=== PATIENT | female | born 1995 | race Two or more races ===

== ENCOUNTER 2022-02-05 23:46 | Emergency (ER) | payer OTHER, SELFPAY ==
--- NOTE | ~2022-02-05 | XR_ITS ---
EXAMINATION: XR WRIST, LEFT CLINICAL INFORMATION: Left wrist pain. COMPARISON: None TECHNIQUE: PA, lateral, and oblique views of the left wrist. FINDINGS: The bones and soft tissues are normal. No fracture. Alignment is anatomic with normal joint spaces. No erosions or abnormal soft tissue calcifications. XR/XR wrist LT min 3V IMPRESSION: Normal left wrist.
[2022-02-05 23:53] VITALS: BP 129/84; PULSE 90; RESP 15; TEMP 36.8; O2SAT 95; BMI 43.0
--- NOTE | 2022-02-06 00:16 | ED.SKABFB ---
HPI - Skin/Abscess/Foreign Bdy General Chief complaint: Skin/Abscess/Foreign Body Stated complaint: painful cyst on L wrist Time Seen by Provider: 02/06/22 00:10 Source: patient Mode of arrival: ambulatory Limitations: no limitations History of Present Illness HPI narrative: 27-year-old female presents to the emergency department with bump to her left wrist times a few weeks worsening. Patient tells me she has had a ganglion cyst in the past, she is wondering with the same thing. Denies any numbness, tingling, pain. She tells me the uncomfortable if she touches it. Denies any trauma to the area. Related Data Allergies Allergy/AdvReac Type Severity Reaction Status Date / Time levofloxacin [Levaquin] Allergy Unknown Unknown Verified 02/05/22 23:53 Penicillins Allergy Unknown Verified 02/05/22 23:53 ANTIBIOTIC Allergy Intermediate ITCHY Uncoded 05/02/20 18:28 Review of Systems Review of Systems: Constitutional : No Fever, No Chills, Cardiovascular : No Chest Pain, No SOB Respiratory : No Dyspnea Gastrointestinal : No abdominal pain Musculoskeletal : No Joint Swelling Skin : No rash, No skin laceration, + Cyst Neuro : No Weakness, No Numbness Psych : No SI/HI Yes all other systems are reviewed and are negative PMFSH Past Medical History Attestation statement: The following information was validated with the patient. Source: old records reviewed and nursing notes reviewed Social History Social History Advance Directives: No Advance Directives Information Provided: Yes Physical Exam Vital Signs: Vital Signs: Last Vital Signs Temp 98.3 F 02/05/22 23:53 Pulse 90 02/05/22 23:53 Resp 15 02/05/22 23:53 BP 129/84 02/05/22 23:53 Pulse Ox 95 02/05/22 23:53 O2 Del Method 02/05/22 23:53 BMI result Body Mass Index 43.0 VSS Appearance: Alert.? Oriented X3.? No acute distress.? Head: Normocephalic, atraumatic, no step-offs or deformities CVS: Normal heart rate and rhythm.? Pulses normal.? Respiratory: No respiratory distress.? Breath sounds normal.? Abdomen: Soft and nontender.? Skin: Skin warm and dry.? Normal skin color.? Normal skin turgor.? Extremities: No lower extremity edema.? No calf ttp. 5/5 strength to bilateral upper and lower extremities + cyst likley ganglion to left ventral wrist 3cm X 3 Cm Back: No midline tenderness, no C-spine tenderness, full range of motion, no CVA tenderness bilaterally Neuro: Oriented X 3.? No motor deficit.? No sensory deficit. CN 2-12 intact Course Reevaluation(s) Reevaluation #1: Patient was reassured that ganglion cyst likely a recurrent in nature, therefore draining it may not be beneficial, will give her information for general surgery follow-up. Advised her to return with new or worsening symptoms. At this time I feel comfortable discharge home Time: 00:23 MDM - Skin/Abscess/Foreign Bdy MDM Narrative Medical decision making narrative: 0022 27-year-old female presents with a ganglion cyst to the left ventral aspect of wrist times a few weeks worsening. Denies numbness, tingling. Denies trauma. Physical examination significant for 3 cm with 3 cm left ganglion cyst to the dorsal aspect of the left wrist. Neurovascularly intact Plan at this time is Education. Medical Records Attestation: I reviewed the patient's medical records. Lab Data Attestation: I reviewed the patient's lab results. Critical Care Time Critical Care Time Critical Care Time: No Discharge Plan Discharge Clinical Impression: Ganglion cyst Patient Disposition: Home, Self-Care Instructions: Ganglion Cysts (ED), Ganglion Cyst Removal (DC) Additional Instructions: Take your medications as prescribed. If you were prescribed antibiotics today, it is important that you take your medication to their entirety, do not skip any doses, do not finish them early. Follow-up with your primary care provider this week. I have given you follow-up for general surgery. As we discussed these are not typically incised and drained because they are usually recurrent in nature. Return to the emergency department with new or worsening symptoms. Such as fevers, chills, chest pain, shortness of breath, nausea, vomiting, dizziness, headache, vision changes, lethargy, numbness, tingling In case of emergency call 911 Referrals: Juan Garibay MD [Physician] - 2 days Stand Alone Forms: Work/School Release
== END 2022-02-06 00:51 | disposition home or self-care (01) ==
PROVIDERS: Emergency Provider Emergency Medicine
DX: M67.432 Ganglion, left wrist (principal); M25.532 Pain in left wrist
CPT/HCPCS: 73110; 99282; 99283

== ENCOUNTER 2022-05-28 18:51 | Emergency (ER) | payer OTHER, SELFPAY ==
[2022-05-28 19:03] VITALS: BP 113/63; PULSE 88; RESP 18; TEMP 36.4; O2SAT 99; BMI 43.4
[2022-05-28 19:34] LABS: Strep A Nucleic Acid Negative (Negative)
--- NOTE | 2022-05-28 19:52 | ED.URI ---
HPI - URI/Sore Throat General Chief Complaint: Upper Respiratory Symptoms Stated Complaint: sore throat, stuffy nose Time Seen by Provider: 05/28/22 19:30 Source: patient Mode of arrival: ambulatory Limitations: no limitations History of Present Illness HPI Narrative: Patient comes to the emergency room complaining of a sore throat and stuffy/running nose. Patient has kids have the same symptoms. Patient denies fever or chills. Patient has history of asthma but she has not had any exacerbations. No shortness of breath or chest pain. Related Data Allergies Allergy/AdvReac Type Severity Reaction Status Date / Time levofloxacin [Levaquin] Allergy Unknown Unknown Verified 02/05/22 23:53 Penicillins Allergy Unknown Verified 02/05/22 23:53 ANTIBIOTIC Allergy Intermediate ITCHY Uncoded 05/02/20 18:28 Review of Systems Review of Systems: Constitutional : No Weight loss, No Fever, No Chills, No Night Sweats, No Fatigue, No Malaise ENT/Mouth : No Hearing loss, No Ear Pain, complaining nasal congestion and runny nose,, No Sinus Pain, No Hoarseness, complaining of sore throat, No Rhinorrhea, No Swallowing Difficulty Eyes: No Eye Pain, No Swelling, No Redness, No Foreign Body, No Discharge, No Vision Changes Cardiovascular : No Chest Pain, No SOB, No Dyspnea on Exertion, No Orthopnea, No Edema, No Palpitations Respiratory : Complaining of cough, no wheezing, no shortness of breath Gastrointestinal : No Nausea, No Vomiting, No Diarrhea, No Constipation, No abdominal Pain, No Hematochezia, No Melena Genitourinary : no irregular bleeding, No Dysuria, No Urinary Frequency, No Hematuria, No Urinary Incontinence, No Urgency, No Flank Pain, No Urinary Flow Changes, No Hesitancy Musculoskeletal : No joint pain, No Myalgias, No Joint Swelling Skin : No Skin Lesions, No rash Neuro : No Weakness, No Numbness, No Paresthesias, No Loss of Consciousness, No Dizziness, No Headache Psych : No Anxiety/Panic, No Depression, No SI/HI/AH/VH, No Social Issues, Heme/Lymph: No Bruising, No Bleeding,No Lymphadenopathy Endocrine : No Polyuria, No Polydipsia, No Temperature Intolerance PMFSH Past Medical History Medical History Asthma exacerbation Social History Social History Advance Directives: No Advance Directives Information Provided: No Physical Exam Vital Signs: Vital Signs: Last Vital Signs Temp 97.5 F 05/28/22 19:03 Pulse 88 05/28/22 19:03 Resp 18 05/28/22 19:03 BP 113/63 05/28/22 19:03 Pulse Ox 99 05/28/22 19:03 O2 Del Method 05/28/22 19:03 BMI result Body Mass Index 43.4 Const: Other: Appearance: Alert. Oriented X3. No acute distress. Eyes: Pupils equal, round and reactive to light. ENT: Pharynx normal. Neck: Normal inspection. Neck supple. No lymph nodes noted. No crepitus CVS: Normal heart rate and rhythm. Pulses normal. Normal S1 and S2 Respiratory: No respiratory distress. Breath sounds normal. No Wheezing. No rales Abdomen: Soft and nontender. No rigidity. No distention. Skin: Skin warm and dry. Normal skin color. Normal skin turgor. Extremities: No lower extremity edema. No Lacerations. No Rash Neuro: Oriented X 3. No motor deficit. No sensory deficit. Moving all extremities. No slurred speech. CN 2 through 12 grossly intact Psych: calm, cooperative, normal affect Course Course Course Narrative: Patient is well-appearing, physical exam is normal. Strep test is negative, tested positive for RSV, respiratory rate within normal limits. MDM - URI/Sore Throat Lab Data Labs: Lab Results 05/28/22 05/28/22 Range/Units 19:14 19:14 Influenza Type A (PCR) NEGATIVE (Negative) Influenza Type B (PCR) NEGATIVE (Negative) RSV RNA Qual (PCR) POSITIVE A (Negative) SARS-CoV-2 RNA (RT-PCR) NEGATIVE (Negative) S. pyogenes GrpA DAISY Negative (Negative) Discharge Plan Discharge Clinical Impression: Acute bronchiolitis due to respiratory syncytial virus (RSV) Patient Disposition: Home, Self-Care Instructions: Bronchiolitis (ED) Additional Instructions: Please follow-up with your primary care physician tomorrow. If you have any worsening or new symptoms, please return to the emergency room or call 911
[2022-05-28 20:05] LABS: Influenza A PCR NEGATIVE (Negative); Influenza B PCR NEGATIVE (Negative); Resp Syncy Virus RNA Qual PCR POSITIVE (Negative); SARS COV2 PCR INHOUSE NEGATIVE (Negative)
== END 2022-05-28 21:08 | disposition home or self-care (01) ==
PROVIDERS: Emergency Provider Emergency Medicine
DX: J21.0 Acute bronchiolitis due to respiratory syncytial virus (principal); Z20.822 Contact with and (suspected) exposure to COVID-19; J02.9 Acute pharyngitis, unspecified
CPT/HCPCS: 0241U; 87651; 99282; 99283

== ENCOUNTER 2022-08-25 19:20 | Emergency (ER) | payer OTHER, SELFPAY ==
--- NOTE | ~2022-08-25 | CT_ITS ---
EXAMINATION: CT ABDOMEN AND PELVIS WITHOUT CONTRAST CLINICAL INFORMATION: Flank pain. Abdominal pain. COMPARISON: CT abdomen pelvis 08/20/2012 TECHNIQUE: Multidetector volumetric imaging was performed from the superior aspect of the liver through the pubic symphysis. Sagittal and coronal reformatted images were obtained on the technologist's workstation. This CT examination was performed using dose optimization techniques as appropriate, variously including the following: *Automated exposure control *Adjustment of mA and/or kV according to patient size (this includes techniques or standardized protocols for targeted exams where dose is matched to indication/reason for exam; i.e. extremities or head) *Use of iterative reconstruction technique DLP: 1007 mGy-cm FINDINGS: LUNG BASES: The visualized lung bases are unremarkable. LIVER, GALLBLADDER, AND BILIARY TREE: The liver is normal in size, shape, and attenuation. No focal hepatic lesion or biliary ductal dilatation is present. The gallbladder is unremarkable with no evidence of radiopaque gallstones, gallbladder wall thickening, or obvious pericholecystic inflammatory changes. PANCREAS: Unremarkable. SPLEEN: Unremarkable. ADRENAL GLANDS: Unremarkable. KIDNEYS AND URETERS: The kidneys are normal in size, shape, and attenuation. No hydronephrosis, hydroureter, or calculi seen. No perinephric stranding. BLADDER: Unremarkable. GASTROINTESTINAL TRACT: The small and large bowel are unremarkable. The appendix is unremarkable. ABDOMINAL WALL: No significant hernia is appreciated. LYMPH NODES: Normal. VASCULAR: Unremarkable. PELVIC VISCERA: Unremarkable. OSSEOUS STRUCTURES: Unremarkable. CT/CT abdomen pelvis wo IV con IMPRESSION: No significant abnormality. Fleischner guidelines were followed.
[2022-08-25 19:32] VITALS: BP 131/72; PULSE 93; RESP 18; TEMP 36.7; O2SAT 98; BMI 44.9
--- NOTE | 2022-08-25 19:33 | ED_ITS ---
HPI - Nausea/Vomiting/Diarrhea General Chief complaint: Nausea/Vomiting/Diarrhea <MADDI Hoffman - Last Filed: 08/25/22 19:34> Stated complaint: gastroenteritis? <MADDI Hoffman - Last Filed: 08/25/22 19:34> Time Seen by Provider: 08/25/22 20:32 <MADDI Hoffman - Last Filed: 08/25/22 19:34> Source: patient <Kiersten Romeo NP - Last Filed: 08/26/22 01:04> Mode of arrival: ambulatory <Kiersten Romeo NP - Last Filed: 08/26/22 01:04> Limitations: no limitations <THERESA Whaley Last Filed: 08/26/22 01:04> History of Present Illness HPI Narrative: 27-year-old female presents with abdominal cramping, nausea, vomiting, diarrhea, starting after eating at a restaurant in [place] on Wednesday. Patient states that multiple people in her family who had the same meal all have similar illnesses. She states to have intermittent chills, is having a difficult time with p.o. intake. <Kiersten Romeo NP - Last Filed: 08/26/22 01:04> MD elicited complaint: nausea, vomiting, diarrhea and abdominal pain <Kiersten Romeo NP - Last Filed: 08/26/22 01:04> Onset (ago): day(s) <Kiersten Romeo NP - Last Filed: 08/26/22 01:04> Description of vomiting: food contents and watery <Kiersten Romeo NP - Last Filed: 08/26/22 01:04> Description of diarrhea: watery <Kiersten Romeo NP - Last Filed: 08/26/22 01:04> Associated nausea: Yes <Kiersten Romeo NP - Last Filed: 08/26/22 01:04> Associated abdominal pain: Yes <Kiersten Romeo NP - Last Filed: 08/26/22 01:04> Location of pain: diffuse <Kiersten Romeo NP - Last Filed: 08/26/22 01:04> Radiation: diffuse <Kiersten Romeo NP - Last Filed: 08/26/22 01:04> Pain consistency: constant <Kiersten Romeo NP - Last Filed: 08/26/22 01:04> Severity: moderate <Kiersten Romeo NP - Last Filed: 08/26/22 01:04> Pain scale (0-10): 6 <Kiersten Romeo NP - Last Filed: 08/26/22 01:04> Quality: cramping, aching and constant <Kiersten Romeo NP - Last Filed: 08/26/22 0 1:04> Exacerbating factors: eating, bowel movement, vomiting and movement <Kiersten Romeo NP - Last Filed: 08/26/22 01:04> Relieving factors: none <Kiersten Romeo NP - Last Filed: 08/26/22 01:04> Context: possible food poisoning <Kiersten Romeo NP - Last Filed: 08/26/22 01:04> Associated symptoms: fever/chills, loss of appetite, malaise and nausea/vomiting <Kiersten Romeo NP - Last Filed: 08/26/22 01:04> Treatment prior to arrival: none <Kiersten Romeo NP - Last Filed: 08/26/22 01:04> Related Data Home medications: Previous Rx's Medication Instructions Recorded dicyclomine 10 mg capsule 10 mg PO QID PRN Abdominal 08/25/22 cramping #10 caps nitrofurantoin 100 mg PO Q12H 7 days #14 caps 08/25/22 monohydrate/macrocrystals 100 mg capsule (Macrobid) <MADDI Hoffman - Last Filed: 08/25/22 19:34> Allergies/Adverse reactions: Allergies Allergy/AdvReac Type Severity Reaction Status Date / Time levofloxacin [Levaquin] Allergy Unknown Unknown Verified 02/05/22 23:53 Penicillins Allergy Unknown Verified 02/05/22 23:53 ANTIBIOTIC Allergy Intermediate ITCHY Uncoded 05/02/20 18:28 <MADDI Hoffman - Last Filed: 08/25/22 19:34> Review of Systems Review of Systems: Constitutional: No Fever, No Chills ENT/Mouth: No Ear Pain, No Hoarseness, No sore throat Eyes: No Eye Pain, No Swelling, No Redness, No Foreign Body Cardiovascular: No Chest Pain, No SOB Respiratory: No Cough, No Dyspnea Gastrointestinal: Positive Nausea, positive Vomiting, positive Diarrhea, positive abdominal Pain Genitourinary: No Dysuria, No Hematuria Musculoskeletal: positive back pain, No Myalgias, No Joint Swelling Skin: No Skin lacerations, No rash Neuro: No Weakness, No Numbness, No Paresthesias, No Dizziness, No Headache <Kiersten Romeo NP - Last Filed: 08/26/22 01:04> Yes all other systems are reviewed and are negative <Kiersten Romeo NP - Last Filed: 08/26/22 01:04> Gastrointestinal: Gastrointestinal: Reports nausea <Kiersten Romeo NP - Last Filed: 08/26/22 01:04> [facility] Past Medical History Attestation statement: The following information was validated with the patient. <Kiersten Romeo NP - Last Filed: 08/26/22 01:04> Source: old records reviewed <Kiersten Romeo NP - Last Filed: 08/26/22 01:04> Medical History: Medical History Asthma exacerbation <MADDI Hoffman - Last Filed: 08/25/22 19:34> Social History Social History: Social History Alcohol intake: never Smoked in Last 30 Days: Yes Use of substances other than those prescribed or required for medical reasons: No Advance Directives: No Advance Directives Information Provided: No Patient : No <MADDI Hoffman - Last Filed: 08/25/22 19:34> Physical Exam Vital Signs: Vital Signs: Last Vital Signs Temp 97.6 F 08/25/22 23:20 Pulse 76 08/25/22 23:20 Resp 17 08/25/22 23:20 BP 108/61 08/25/22 23:20 Pulse Ox 98 08/25/22 23:20 O2 Del Method 08/25/22 23:20 BMI result Body Mass Index 44.9 <MADDI Hoffman - Last Filed: 08/25/22 19:34> Vital Signs: Last Vital Signs Temp 97.6 F 08/25/22 23:20 Pulse 76 08/25/22 23:20 Resp 17 08/25/22 23:20 BP 108/61 08/25/22 23:20 Pulse Ox 98 08/25/22 23:20 O2 Del Method 08/25/22 23:20 BMI result Body Mass Index 44.9 <Kiersten Romeo NP - Last Filed: 08/26/22 01:04> Appearance: Alert. Oriented X3. Mild distress. Eyes: Pupils equal, round and reactive to light. ENT: Pharynx normal. Neck: Normal inspection. Neck supple. CVS: Tachycardic heart rate and rhythm. Pulses normal. Respiratory: No respiratory distress. Breath sounds normal. Abdomen: Soft and diffusely tender. Positive left-sided CVA tenderness. No rigidity or rebound. Skin: Skin warm and dry. Normal skin color. Normal skin turgor. Extremities: No lower extremity edema. Gait well-balanced will coordinated. Neuro: No motor deficit. No sensory deficit. Cranial nerves 2-12 intact. <Kiersten Romeo NP - Last Filed: 08/26/22 01:04> Course Course Course Narrative: RME - 27 yo female presenting with N/V/D and diffuse abdominal pain after possible food poisoning on Wednesday. Kids who ate the food also not feeling well. Non bloody vomitus and diarrhea. Seen at Urgent Care today - had protein in her urine and was instructed to come to the ER for further evaluation. <MADDI Hoffman - Last Filed: 08/25/22 19:34> RME - 27 yo female presenting with N/V/D and diffuse abdominal pain after possible food poisoning on Wednesday. Kids who ate the food also not feeling well. Non bloody vomitus and diarrhea. Seen at Urgent Care today - had protein in her urine and was instructed to come to the ER for further evaluation. 27-year-old female presents with gastrointestinal symptoms. Physical exam indicates a tender abdomen greater at the left lower quadrant, without rebound or rigidity. Left-sided CVA tenderness. Labs drawn while she was in the emergency department waiting room, CBC is unremarkable, chemistries are within normal limits, urinalysis is pending. Will order CT scan of abdomen pelvis. Patient does have a history of kidney stones. Will order pain management, antiemetic, and fluid resuscitation. Urinalysis positive for UTI will treat with Macrobid. Patient requires more pain management. CT scan negative for acute findings requiring emergent intervention. Plan is discharge home with supportive measures for gastroenteritis. Will give Bentyl for abdominal cramping. Will prescribe Macrobid for UTI. I did advise the patient not taking medications to prevent diarrhea as this can cause worsening symptoms. I did encourage her to increase fluids and foods that she find palatable. Patient verbalized understanding of and agrees to plan of care discharge home. Verbalized understanding of symptoms indicating need for emergent intervention. <Kiersten Romeo NP - Last Filed: 08/26/22 01:04> Medications Administered Discontinued Medications Generic Name Dose Route Start Last Admin Trade Name Freq PRN Reason Stop Dose Admin Dicyclomine HCl 10 mg 08/25/22 23:30 08/26/22 00:00 Dicyclomine Hcl 10 Mg Capsule PO 08/25/22 23:31 10 mg ONCE ONE Administration Sodium Chloride 1,000 mls @ 999 mls/hr 08/25/22 20:45 08/25/22 21:21 Ns IVCONT 08/25/22 21:45 999 mls/hr .Q1H1M BRET Administration Ketorolac Tromethamine 15 mg 08/25/22 20:38 08/25/22 21:39 Ketorolac Tromethamine 15 Mg/Ml Vial IVPUSH 08/25/22 20:39 15 mg ONCE ONE Administration Nitrofurantoin Macrocrystals 100 mg 08/25/22 23:26 08/26/22 00:00 Nitrofurantoin Monohyd/M-Cryst 100 Mg Capsule PO 08/25/22 23:27 100 mg ONCE ONE Administration Ondansetron HCl 4 mg 08/25/22 20:38 08/25/22 21:40 Ondansetron Hcl 4 Mg/2 Ml Vial IVPUSH 08/25/22 20:39 4 mg ONCE ONE Administration <MADDI Hoffman - Last Filed: 08/25/22 19:34> Medications Administered Discontinued Medications Generic Name Dose Route Start Last Admin Trade Name Freq PRN Reason Stop Dose Admin Dicyclomine HCl 10 mg 08/25/22 23:30 08/26/22 00:00 Dicyclomine Hcl 10 Mg Capsule PO 08/25/22 23:31 10 mg ONCE ONE Administration Sodium Chloride 1,000 mls @ 999 mls/hr 08/25/22 20:45 08/25/22 21:21 Ns IVCONT 08/25/22 21:45 999 mls/hr .Q1H1M BRET Administration Ketorolac Tromethamine 15 mg 08/25/22 20:38 08/25/22 21:39 Ketorolac Tromethamine 15 Mg/Ml Vial IVPUSH 08/25/22 20:39 15 mg ONCE ONE Administration Nitrofurantoin Macrocrystals 100 mg 08/25/22 23:26 08/26/22 00:00 Nitrofurantoin Monohyd/M-Cryst 100 Mg Capsule PO 08/25/22 23:27 100 mg ONCE ONE Administration Ondansetron HCl 4 mg 08/25/22 20:38 08/25/22 21:40 Ondansetron Hcl 4 Mg/2 Ml Vial IVPUSH 08/25/22 20:39 4 mg ONCE ONE Administration <Kiersten Romeo NP - Last Filed: 08/26/22 01:04> Medical Decision Making Differential Diagnosis Differential Diagnoses: The differential diagnosis associated with the presentation includes <Kiersten Romeo NP - Last Filed: 08/26/22 01:04> Gastroenteritis, diverticulitis, appendicitis, kidney stone, UTI <Kiersten Romeo NP - Last Filed: 08/26/22 01:04> Admission/Observation Consideration of admission/observation: Escalation of care including admission/observation considered <Kiersten Romeo NP - Last Filed: 08/26/22 01:04> If patient has findings indicating acute abdomen, will consider admission <Kiersten Romeo NP - Last Filed: 08/26/22 01:04> Lab Data MDM Lab Attestation statement: I reviewed the patient's lab results. <Kiersten Romeo NP - Last Filed: 08/26/22 01:04> Result Diagrams: 08/25/22 19:40 08/25/22 19:40 <MADDI Hoffman - Last Filed: 08/25/22 19:34> Labs: Lab Results 08/25/22 08/25/22 08/25/22 Range/Units 19:40 19:40 20:27 WBC 10.1 (4.8-10.8) X10*3/uL RBC 4.33 (4.20-5.50) X10*6/uL Hgb 11.9 L (12.0-16.0) g/dl Hct 36.4 L (37.0-47.0) % MCV 84.1 (80.0-98.0) fL MCH 27.5 (27.0-33.0) pg MCHC 32.7 (31.0-35.0) g/dl RDW 13.6 (11.0-16.0) % Plt Count 322 (160-400) X10*3/uL MPV 9.8 (9.4-12.3) fL Immature Gran % (Auto) 0.2 (0.0-0.4) % Neut % (Auto) 64.8 (45-73) % Lymph % (Auto) 27.1 (20-40) % [place] % (Auto) 5.7 (2-11) % Eos % (Auto) 1.9 (0-4) % Baso % (Auto) 0.3 (0-2) % Lymph # (Auto) 2.7 (1.2-4.9) X10*3/uL [place] # (Auto) 0.6 (0.1-1.2) X10*3/uL Eos # (Auto) 0.2 (0.0-0.4) X10*3/uL Baso # (Auto) 0.0 (0.0-0.2) X10*3/uL Abs Immat Gran (auto) 0.02 (0.00-0.03) X10*3/uL Absolute Neuts (auto) 6.6 (2.0-8.3) x10*3/uL Absolute Nucleated RBC 0.000 (0.0-0.012) X10*3/uL Nucleated RBC % (auto) 0.0 (0.0-0.2) /100WBC Sodium 140 (135-145) mmol/L Potassium 3.5 (3.3-5.1) mmol/L Chloride 107 (96-108) mmol/L Carbon Dioxide 23 (22-29) mmol/L Anion Gap 14 (12-20) BUN 6 L (9-16) mg/dL Creatinine 0.65 (0.5-1.4) mg/dL Estim Creat Clear Calc 141.6 Estimated GFR > 60 Random Glucose 100 (60-115) mg/dL Calcium 8.7 (8.4-10.2) mg/dL Magnesium 1.9 (1.6-2.6) mg/dL Total Bilirubin 0.2 (0.0-1.0) mg/dL Direct Bilirubin < 0.2 (0.0-0.5) mg/dL AST 15 (5-31) U/L ALT 16 (0-31) U/L Alkaline Phosphatase 80 (39-117) U/L Total Protein 7.1 (6.5-8.0) g/dL Albumin 4.2 (3.5-5.0) g/dL Urine Color Dark Yellow Urine Appearance Clear Urine pH 6.0 (5.0-9.0) Ur Specific Mercedes >= 1.030 H (1.005-1.025) Urine Protein 30 (1+) H (Neg-Trace) mg/dL Urine Glucose (UA) Negative (Negative) mg/dL Urine Ketones Trace (Negative) mg/dL Urine Blood Moderate (2+) H (Negative) Urine Nitrite Negative (Negative) Ur Leukocyte Esterase Small (1+) H (Negative) Urine RBC 11-20 H (0-2) /HPF Urine WBC 6-10 H (0-5) /HPF Ur Squamous Epith Cells 11-20 (0-2) /HPF Urine Bacteria 1+ (None Seen) Hyaline Casts 0-2 (0-2) /LPF Urine Test (NEGATIVE) Influenza Type A (PCR) (Negative) Influenza Type B (PCR) (Negative) RSV RNA Qual (PCR) (Negative) SARS-CoV-2 RNA (RT-PCR) (Negative) 08/25/22 08/25/22 Range/Units 20:27 20:48 WBC (4.8-10.8) X10*3/uL RBC (4.20-5.50) X10*6/uL Hgb (12.0-16.0) g/dl Hct (37.0-47.0) % MCV (80.0-98.0) fL MCH (27.0-33.0) pg MCHC (31.0-35.0) g/dl RDW (11.0-16.0) % Plt Count (160-400) X10*3/uL MPV (9.4-12.3) fL Immature Gran % (Auto) (0.0-0.4) % Neut % (Auto) (45-73) % Lymph % (Auto) (20-40) % [place] % (Auto) (2-11) % Eos % (Auto) (0-4) % Baso % (Auto) (0-2) % Lymph # (Auto) (1.2-4.9) X10*3/uL [place] # (Auto) (0.1-1.2) X10*3/uL Eos # (Auto) (0.0-0.4) X10*3/uL Baso # (Auto) (0.0-0.2) X10*3/uL Abs Immat Gran (auto) (0.00-0.03) X10*3/uL Absolute Neuts (auto) (2.0-8.3) x10*3/uL Absolute Nucleated RBC (0.0-0.012) X10*3/uL Nucleated RBC % (auto) (0.0-0.2) /100WBC Sodium (135-145) mmol/L Potassium (3.3-5.1) mmol/L Chloride (96-108) mmol/L Carbon Dioxide (22-29) mmol/L Anion Gap (12-20) BUN (9-16) mg/dL Creatinine (0.5-1.4) mg/dL Estim Creat Clear Calc Estimated GFR Random Glucose (60-115) mg/dL Calcium (8.4-10.2) mg/dL Magnesium (1.6-2.6) mg/dL Total Bilirubin (0.0-1.0) mg/dL Direct Bilirubin (0.0-0.5) mg/dL AST (5-31) U/L ALT (0-31) U/L Alkaline Phosphatase (39-117) U/L Total Protein (6.5-8.0) g/dL Albumin (3.5-5.0) g/dL Urine Color Urine Appearance Urine pH (5.0-9.0) Ur Specific [place] (1.005-1.025) Urine Protein (Neg-Trace) mg/dL Urine Glucose (UA) (Negative) mg/dL Urine Ketones (Negative) mg/dL Urine Blood (Negative) Urine Nitrite (Negative) Ur Leukocyte Esterase (Negative) Urine RBC (0-2) /HPF Urine WBC (0-5) /HPF Ur Squamous Epith Cells (0-2) /HPF Urine Bacteria (None Seen) Hyaline Casts (0-2) /LPF Urine Test NEGATIVE (NEGATIVE) Influenza Type A (PCR) NEGATIVE (Negative) Influenza Type B (PCR) NEGATIVE (Negative) RSV RNA Qual (PCR) NEGATIVE (Negative) SARS-CoV-2 RNA (RT-PCR) NEGATIVE (Negative) <MADDI Hoffman - Last Filed: 08/25/22 19:34> Lab Results 08/25/22 08/25/22 08/25/22 Range/Units 19:40 19:40 20:27 WBC 10.1 (4.8-10.8) X10*3/uL RBC 4.33 (4.20-5.50) X10*6/uL Hgb 11.9 L (12.0-16.0) g/dl Hct 36.4 L (37.0-47.0) % MCV 84.1 (80.0-98.0) fL MCH 27.5 (27.0-33.0) pg MCHC 32.7 (31.0-35.0) g/dl RDW 13.6 (11.0-16.0) % Plt Count 322 (160-400) X10*3/uL MPV 9.8 (9.4-12.3) fL Immature Gran % (Auto) 0.2 (0.0-0.4) % Neut % (Auto) 64.8 (45-73) % Lymph % (Auto) 27.1 (20-40) % [place] % (Auto) 5.7 (2-11) % Eos % (Auto) 1.9 (0-4) % Baso % (Auto) 0.3 (0-2) % Lymph # (Auto) 2.7 (1.2-4.9) X10*3/uL [place] # (Auto) 0.6 (0.1-1.2) X10*3/uL Eos # (Auto) 0.2 (0.0-0.4) X10*3/uL Baso # (Auto) 0.0 (0.0-0.2) X10*3/uL Abs Immat Gran (auto) 0.02 (0.00-0.03) X10*3/uL Absolute Neuts (auto) 6.6 (2.0-8.3) x10*3/uL Absolute Nucleated RBC 0.000 (0.0-0.012) X10*3/uL Nucleated RBC % (auto) 0.0 (0.0-0.2) /100WBC Sodium 140 (135-145) mmol/L Potassium 3.5 (3.3-5.1) mmol/L Chloride 107 (96-108) mmol/L Carbon Dioxide 23 (22-29) mmol/L Anion Gap 14 (12-20) BUN 6 L (9-16) mg/dL Creatinine 0.65 (0.5-1.4) mg/dL Estim Creat Clear Calc 141.6 Estimated GFR > 60 Random Glucose 100 (60-115) mg/dL Calcium 8.7 (8.4-10.2) mg/dL Magnesium 1.9 (1.6-2.6) mg/dL Total Bilirubin 0.2 (0.0-1.0) mg/dL Direct Bilirubin < 0.2 (0.0-0.5) mg/dL AST 15 (5-31) U/L ALT 16 (0-31) U/L Alkaline Phosphatase 80 (39-117) U/L Total Protein 7.1 (6.5-8.0) g/dL Albumin 4.2 (3.5-5.0) g/dL Urine Color Dark Yellow Urine Appearance Clear Urine pH 6.0 (5.0-9.0) Ur Specific Mercedes >= 1.030 H (1.005-1.025) Urine Protein 30 (1+) H (Neg-Trace) mg/dL Urine Glucose (UA) Negative (Negative) mg/dL Urine Ketones Trace (Negative) mg/dL Urine Blood Moderate (2+) H (Negative) Urine Nitrite Negative (Negative) Ur Leukocyte Esterase Small (1+) H (Negative) Urine RBC 11-20 H (0-2) /HPF Urine WBC 6-10 H (0-5) /HPF Ur Squamous Epith Cells 11-20 (0-2) /HPF Urine Bacteria 1+ (None Seen) Hyaline Casts 0-2 (0-2) /LPF Urine Test (NEGATIVE) Influenza Type A (PCR) (Negative) Influenza Type B (PCR) (Negative) RSV RNA Qual (PCR) (Negative) SARS-CoV-2 RNA (RT-PCR) (Negative) 08/25/22 08/25/22 Range/Units 20:27 20:48 WBC (4.8-10.8) X10*3/uL RBC (4.20-5.50) X10*6/uL Hgb (12.0-16.0) g/dl Hct (37.0-47.0) % MCV (80.0-98.0) fL MCH (27.0-33.0) pg MCHC (31.0-35.0) g/dl RDW (11.0-16.0) % Plt Count (160-400) X10*3/uL MPV (9.4-12.3) fL Immature Gran % (Auto) (0.0-0.4) % Neut % (Auto) (45-73) % Lymph % (Auto) (20-40) % [place] % (Auto) (2-11) % Eos % (Auto) (0-4) % Baso % (Auto) (0-2) % Lymph # (Auto) (1.2-4.9) X10*3/uL [place] # (Auto) (0.1-1.2) X10*3/uL Eos # (Auto) (0.0-0.4) X10*3/uL Baso # (Auto) (0.0-0.2) X10*3/uL Abs Immat Gran (auto) (0.00-0.03) X10*3/uL Absolute Neuts (auto) (2.0-8.3) x10*3/uL Absolute Nucleated RBC (0.0-0.012) X10*3/uL Nucleated RBC % (auto) (0.0-0.2) /100WBC Sodium (135-145) mmol/L Potassium (3.3-5.1) mmol/L Chloride (96-108) mmol/L Carbon Dioxide (22-29) mmol/L Anion Gap (12-20) BUN (9-16) mg/dL Creatinine (0.5-1.4) mg/dL Estim Creat Clear Calc Estimated GFR Random Glucose (60-115) mg/dL Calcium (8.4-10.2) mg/dL Magnesium (1.6-2.6) mg/dL Total Bilirubin (0.0-1.0) mg/dL Direct Bilirubin (0.0-0.5) mg/dL AST (5-31) U/L ALT (0-31) U/L Alkaline Phosphatase (39-117) U/L Total Protein (6.5-8.0) g/dL Albumin (3.5-5.0) g/dL Urine Color Urine Appearance Urine pH (5.0-9.0) Ur Specific [place] (1.005-1.025) Urine Protein (Neg-Trace) mg/dL Urine Glucose (UA) (Negative) mg/dL Urine Ketones (Negative) mg/dL Urine Blood (Negative) Urine Nitrite (Negative) Ur Leukocyte Esterase (Negative) Urine RBC (0-2) /HPF Urine WBC (0-5) /HPF Ur Squamous Epith Cells (0-2) /HPF Urine Bacteria (None Seen) Hyaline Casts (0-2) /LPF Urine Test NEGATIVE (NEGATIVE) Influenza Type A (PCR) NEGATIVE (Negative) Influenza Type B (PCR) NEGATIVE (Negative) RSV RNA Qual (PCR) NEGATIVE (Negative) SARS-CoV-2 RNA (RT-PCR) NEGATIVE (Negative) <Kiersten Romeo NP - Last Filed: 08/26/22 01:04> Independent Interpretation I performed an independent interpretation of an: CT Scan <Kiersten Romeo NP - Last Filed: 08/26/22 01:04> Radiology Impression Discussion of test interpretation with radiology: I have reviewed the radiologist's reading. <Kiersten Romeo NP - Last File d: 08/26/22 01:04> Radiologist Impression: FINDINGS: LUNG BASES: The visualized lung bases are unremarkable.? LIVER, GALLBLADDER, AND BILIARY TREE: The liver is normal in size, shape, and attenuation. No focal hepatic lesion or biliary ductal dilatation is present. The gallbladder is unremarkable with no evidence of radiopaque gallstones, gallbladder wall thickening, or obvious pericholecystic inflammatory changes.? PANCREAS: Unremarkable.? SPLEEN: Unremarkable.? ADRENAL GLANDS: Unremarkable.? KIDNEYS AND URETERS: The kidneys are normal in size, shape, and attenuation. No hydronephrosis, hydroureter, or calculi seen. No perinephric stranding. ? BLADDER: Unremarkable.? GASTROINTESTINAL TRACT: The small and large bowel are unremarkable. The appendix is unremarkable.? ABDOMINAL WALL: No significant hernia is appreciated.? LYMPH NODES: Normal. VASCULAR: Unremarkable. PELVIC VISCERA: Unremarkable.? OSSEOUS STRUCTURES: Unremarkable.? CT/CT abdomen pelvis wo IV con IMPRESSION: No significant abnormality.? ? Fleischner guidelines were followed. <Kiersten Romeo NP - Last Filed: 08/26/22 01:04> Prescription Management I considered prescription management with: Pain Medication and Antibiotic <Kiersten Romeo NP - Last Filed: 08/26/22 01:04> Discharge Plan Discharge Clinical Impression: Gastroenteritis, UTI (urinary tract infection) <MADDI Hoffman - Last Filed: 08/25/22 19:34> Patient Disposition: Home, Self-Care <MADDI Hoffman - Last Filed: 08/25/22 19:34> Instructions: Urinary Tract Infection in Women (ED), Gastroenteritis (ED) <MADDI Hoffman - Last Filed: 08/25/22 19:34> Additional Instructions: You were evaluated for abdominal pain, nausea, vomiting, and diarrhea. This is suspected to be a gastroenteritis, which is a stomach bug. Please drink plenty of fluids. Do not take any medications to stop diarrhea. Taking medications to stop diarrhea while you have a gastrointestinal syndrome can be very dangerous. For abdominal cramping and pain, take Bentyl 10 mg every 8 hours as needed. Urinalysis positive for urinary tract infection. Please take Macrobid 100 mg every 12 hours for the next 7 days. Thank you for choosing this emergency department for evaluation. Please follow-up with primary care physician as needed. Return to the emergency department for any new, concerning, or worsening symptoms. <MADDI Hoffman - Last Filed: 08/25/22 19:34> Prescriptions: New dicyclomine 10 mg capsule 10 mg PO QID PRN (Reason: Abdominal cramping) Qty: 10 0RF nitrofurantoin monohyd/m-cryst [Macrobid] 100 mg capsule 100 mg PO Q12H 7 Days Qty: 14 0RF Rx Instructions: must administer with a meal/food <MADDI Hoffman - Last Filed: 08/25/22 19:34> Stand Alone Forms: Work/School Release <MADDI Hoffman - Last Filed: 08/25/22 19:34> Interventions: ED Discharge Assessment Last Done: 08/25/22 23:57 <MADDI Hoffman - Last Filed: 08/25/22 19:34> Discharge Date/Time: 08/26/22 00:15 <MADDI Hoffman - Last Filed: 08/25/22 19:34>
[2022-08-25 19:43] LABS: MANUAL DIFF FLAG NO
[2022-08-25 19:47] LABS: Basophils Percent Auto 0.3 % (0-2); Eosinophils Absolute Auto 0.2 X10*3/uL (0.0-0.4); Eosinophils Percent Auto 1.9 % (0-4); Hematocrit 36.4 % (37.0-47.0); Hemoglobin 11.9 g/dl (12.0-16.0); Imm Gran Abs Auto 0.02 X10*3/uL (0.00-0.03); Imm Gran Pct Auto 0.2 % (0.0-0.4); Lymphocytes Absolute Auto 2.7 X10*3/uL (1.2-4.9); Lymphocytes Percent Auto 27.1 % (20-40); Mean Corpuscular HGB Conc 32.7 g/dl (31.0-35.0); Mean Corpuscular Hemoglobin 27.5 pg (27.0-33.0); Mean Corpuscular Volume 84.1 fL (80.0-98.0); Mean Platelet Volume 9.8 fL (9.4-12.3); Monocytes Absolute Auto 0.6 X10*3/uL (0.1-1.2); Monocytes Percent Auto 5.7 % (2-11); Neutrophils Absolute Auto 6.6 x10*3/uL (2.0-8.3); Neutrophils Percent Auto 64.8 % (45-73); Platelet Count 322 X10*3/uL (160-400); Red Blood Count 4.33 X10*6/uL (4.20-5.50); Red Cell Distribution Width 13.6 % (11.0-16.0); White Blood Count 10.1 X10*3/uL (4.8-10.8)
[2022-08-25 20:08] LABS: Alanine Aminotransferase 16 U/L (0-31); Albumin Level 4.2 g/dL (3.5-5.0); Alkaline Phosphatase 80 U/L (39-117); Anion Gap 14 (12-20); Aspartate Amino Transferase 15 U/L (5-31); Bilirubin Direct < 0.2 mg/dL (0.0-0.5); Bilirubin Total 0.2 mg/dL (0.0-1.0); Blood Urea Nitrogen 6 mg/dL (9-16); Calcium 8.7 mg/dL (8.4-10.2); Carbon Dioxide 23 mmol/L (22-29); Chloride 107 mmol/L (96-108); Creatinine Clr Calc Pharmacy 141.6; Estimated Glomerular Filt Rate > 60; Glucose Random 100 mg/dL (60-115); Magnesium 1.9 mg/dL (1.6-2.6); Potassium 3.5 mmol/L (3.3-5.1); Sodium 140 mmol/L (135-145); Total Protein 7.1 g/dL (6.5-8.0)
[2022-08-25 20:45] LABS: Appearance Urine Clear; Color Urine Dark Yellow; Glucose Urine UA Negative (Negative); Leukocyte Esterase Urine Small (1+) (Negative); Nitrite Urine Negative (Negative); Specific Gravity - Urine >= 1.030 (1.005-1.025); UMIC TRIGGER UACC YES; Urine Blood Moderate (2+) (Negative); Urine Ketones Trace mg/dL (Negative); Urine Protein 30 (1+) mg/dL (Neg-Trace)
[2022-08-25 20:47] VITALS: BP 98/77; PULSE 92; RESP 18; TEMP 37.1; O2SAT 100
[2022-08-25 20:47] LABS: Bacteria Urine 1+ (None Seen); Hyaline Casts Urine 0-2 /LPF (0-2); UACC Culture Trigger YES; UPreg QC Valid YES; Urine Pregnancy NEGATIVE (NEGATIVE)
[2022-08-25] MEDS: 0.9 % Sodium Chloride 1,000 ML 999 ML IVCONT (21:21)
[2022-08-25 21:31] LABS: Influenza A PCR NEGATIVE (Negative); Influenza B PCR NEGATIVE (Negative); Resp Syncy Virus RNA Qual PCR NEGATIVE (Negative); SARS COV2 PCR INHOUSE NEGATIVE (Negative)
[2022-08-25] MEDS: Ketorolac Tromethamine 15 MG/ML VIAL IVPUSH (21:39)
[2022-08-25] MEDS: ondansetron HCL 4 MG/2 ML VIAL IVPUSH (21:40)
[2022-08-25 21:50] VITALS: BP 98/77; PULSE 92; RESP 16; TEMP 37.1; O2SAT 100
--- NOTE | 2022-08-25 22:37 | PC.NURSE ---
Patient is alert and oriented x4. Complains of pain to her abd. Patient stated that she went out to eat with the family on Wednesday and ever since that all her family members been sick. Patient is experiencing nausea, vomiting and diarrhea. Stated that it is possibly food poisoning. Zofran and pain medication were given via IV with the positive effect. Patient remains to be on IV fluids. Safety maintained
[2022-08-25 23:20] VITALS: BP 108/61; PULSE 76; RESP 17; TEMP 36.4; O2SAT 98
[2022-08-26] MEDS: Nitrofurantoin Monohyd/M-Cryst 100 MG CAPSULE PO
[2022-08-26] MEDS: Dicyclomine HCl 10 MG CAPSULE PO
== END 2022-08-26 00:15 | disposition home or self-care (01) ==
PROVIDERS: Nurse Practitioner Family; Physician Assistant; Emergency Provider Emergency Medicine Emergency Medical Services
DX: K52.9 Noninfective gastroenteritis and colitis, unspecified (principal); N39.0 Urinary tract infection, site not specified; Z20.822 Contact with and (suspected) exposure to COVID-19; Z20.828 Contact with and (suspected) exposure to other viral communicable diseases; R11.2 Nausea with vomiting, unspecified; R10.32 Left lower quadrant pain
CPT/HCPCS: 0241U; 36415; 74176; 80048; 80076; 81001; 81025; 83735; 85025; 87086; 96374; 96375; 99284; J1885; J2405

== ENCOUNTER 2023-10-17 19:23 | Emergency (ER) | payer OTHER, SELFPAY ==
[2023-10-17 20:13] VITALS: BP 114/74; PULSE 110; RESP 20; TEMP 36.9; O2SAT 99; BMI 46.5
[2023-10-17 21:14] LABS: Influenza A PCR NEGATIVE (Negative); Influenza B PCR NEGATIVE (Negative); Resp Syncy Virus RNA Qual PCR NEGATIVE (Negative); SARS COV2 PCR INHOUSE NEGATIVE (Negative)
--- NOTE | 2023-10-17 21:22 | ED_ITS ---
HPI - General Adult General Chief complaint: Nausea/Vomiting/Diarrhea Stated complaint: vomiting,diarrhea Time Seen by Provider: 10/17/23 20:51 Source: patient Mode of arrival: ambulatory Limitations: no limitations History of Present Illness HPI narrative: 28 yold female with pmh of ashmat presents to the ED for nausea, vomitting, diarrhea since wednesday. patient states her duaghter has similar symptoms. Patient denies any chest pain or shortness of breath Related Data Previous Rx's Medication Instructions Recorded dicyclomine 10 mg capsule 10 mg PO QID PRN Abdominal 08/25/22 cramping #10 caps nitrofurantoin 100 mg PO Q12H 7 days #14 caps 08/25/22 monohydrate/macrocrystals 100 mg capsule (Macrobid) Allergies Allergy/AdvReac Type Severity Reaction Status Date / Time Penicillins Allergy Mild Anaphylaxis Verified 10/17/23 20:12 levofloxacin [Levaquin] Allergy Unknown Unknown Verified 02/05/22 23:53 ANTIBIOTIC Allergy Intermediate ITCHY Uncoded 05/02/20 18:28 Review of Systems Review of Systems: nause, vomitting, diarrhea Yes all other systems are reviewed and are negative [facility] Past Medical History Medical History Asthma exacerbation Social History Social History Alcohol intake: never Advance Directives: No Advance Directives Information Provided: No Physical Exam ED Vital Signs: Vital Signs - 24 hr 10/17/23 20:13 Temperature 98.4 F Pulse Rate 110 H Respiratory Rate 20 Blood Pressure 114/74 Pulse Oximetry 99 Oxygen Delivery Method Room Air BMI result Body Mass Index 46.5 Const General: cooperative, healthy appearing, comfortable, no acute distress, well developed, alert, awake and Physically active Orientation/consciousness: oriented to person, oriented to place, oriented to time and patient oriented x3 HENMT Head: Yes normal to inspection, Yes No palpable skull fracture present, Yes normocephalic and Yes atraumatic Ears: hearing grossly normal bilaterally, external ears normal, TM's normal bilaterally, TM normal on the right, TM normal on the left, EAC's normal, mastoids normal and no periauricular adenopathy Throat: Yes posterior oropharynx normal, Yes tonsils normal and Yes uvula midline Eyes General: appearance normal, both eyes and all related structures Neck Neck: Yes normal visual inspection, Yes full ROM, Yes no lymphadenopathy, Yes no meningeal signs, Yes trachea midline, Yes supple, No anterior neck swelling and No tender Chest Chest palpation & inspection: normal inspection of the chest and normal palpation of entire chest wall Resp Effort & Inspection: normal respiratory effort and able to speak in complete sentences Auscultation: clear to auscultation bilaterally Cardio Jugular venous distension: no JVD Heart sounds: S1 normal heart sound present and S2 normal heart sound present GI Inspection: Yes normal to inspection Palpation (GI): Soft to palpation, not firm, nontender, no guarding and not rigid General: Yes no CVA tenderness Back/Spine/Pelvis Back: no CVA tenderness and No back tenderness Skin General skin exam: no rashes or lesions noted, elasticity normal and turgor normal Neuro General: oriented to person, oriented to place, oriented to time, patient oriented x3, gait normal, tone normal, moves all extremities, Normal light touch and pain sensation, no meningeal signs, no focal motor deficits, CN's II-XI intact bilaterally and normal sensation to monofilament Extrem General: Yes normal to inspection, Yes full ROM and Yes capillary refill normal Psych Appearance: grossly normal, well kempt and not disheveled Medical Decision Making Medical Decision Making MDM Narrative: 28-year-old female history of asthma presents to the ED for sore throat nausea vomiting diarrhea. Daughter has similar symptoms. RSV COVID influenza negative. Strep pending. 10:09pm: strep test is negative. patient explained worrisome signs and informed to return to the ED if he has them. Differential Diagnosis Differential Diagnoses: The differential diagnosis associated with the presentation includes (covid, RSV, influenza, and strep) Admission/Observation Consideration of admission/observation: Escalation of care including admission/observation considered Lab Data MDM Lab Attestation statement: I reviewed the patient's lab results. Labs: Lab Results 10/17/23 10/17/23 Range/Units 20:24 21:09 Influenza Type A (PCR) NEGATIVE (Negative) Influenza Type B (PCR) NEGATIVE (Negative) RSV RNA Qual (PCR) NEGATIVE (Negative) SARS-CoV-2 RNA (RT-PCR) NEGATIVE (Negative) S. pyogenes GrpA DAISY Negative (Negative) Independent Historian Clinical information obtained from an independent historian. History obtained from or confirmed by: Other (patient) External Record Review External record reviewed: Other (prior visits) Prescription Management I considered prescription management with: Pain Medication Discharge Plan Discharge Clinical Impression: Acute viral syndrome Patient Disposition: Home, Self-Care Instructions: Viral Syndrome (ED) Additional Instructions: Return to the ED immediately for any chest pain, shortness of breath, rash, fever, chills, abdominal pain, ear pain, sore throat, weakness, dizziness, or any other concerning symptoms. Please follow-up with primary care provider Prescriptions: No Action dicyclomine 10 mg capsule 10 mg PO QID PRN (Reason: Abdominal cramping) Qty: 10 0RF nitrofurantoin monohyd/m-cryst [Macrobid] 100 mg capsule 100 mg PO Q12H 7 Days Qty: 14 0RF Rx Instructions: must administer with a meal/food Stand Alone Forms: Work/School Release Interventions: ED Discharge Assessment Last Done: 10/17/23 22:20 Discharge Date/Time: 10/17/23 22:20 Print Language: Danish
[2023-10-17 21:33] LABS: IDNOW Serial# 08D9AD1C; Strep A Nucleic Acid Negative (Negative)
== END 2023-10-17 22:20 | disposition home or self-care (01) ==
PROVIDERS: Physician Assistant; Emergency Provider Internal Medicine
DX: B34.9 Viral infection, unspecified (principal); R11.2 Nausea with vomiting, unspecified; Z11.52 Encounter for screening for COVID-19; Z20.822 Contact with and (suspected) exposure to COVID-19
CPT/HCPCS: 0241U; 87651; 99282; 99283